=== PATIENT | male | born 1995 | race Caucasian/White ===

== ENCOUNTER 2021-06-13 16:10 | Emergency (ER) | payer MEDICAID, SELFPAY ==
[~2021-06-13] VITALS: Ht 177.8 cm; Wt 90.7 kg
[2021-06-13 16:27] VITALS: BP_SYST 127
--- NOTE | 2021-06-13 16:50 | NUR ---
Pt bib ALS for OD on RX meds with previous suicidal attempts.
[2021-06-13 17:20] LABS: BASOPHILS % (AUTO) 0.2 % (0.0-2.0); EOSINOPHILS % (AUTO) 0.4 % (0.0-4.0); HEMOGLOBIN 14.5 g/dL (14.0-18.0); LYMPHOCYTES # (AUTO) 1.7 K/uL (1.0-5.5); LYMPHOCYTES % (AUTO) 19.2 % (20.5-51.5); MEAN CORPUSCULAR HEMOGLOBIN 27 pg (27-31); MEAN CORPUSCULAR HGB CONC 33 % (32-36); MEAN CORPUSCULAR VOLUME 81 fL (79.0-98.0); MONOCYTES # (AUTO) 0.5 K/uL (0.0-1.0); MONOCYTES % (AUTO) 5.2 % (1.7-9.3); NEUTROPHILS # (AUTO) 6.8 K/uL (1.8-7.7); PLATELET COUNT (AUTO) 262 K/uL (130-430); RED CELL DISTRIBUTION WIDTH 18.6 % (9.0-15.0)
--- NOTE | 2021-06-13 17:20 | NUR ---
Poison control called. Advised to observed for drowsiness, QRS widened and abnormal ASA,Tylenol level.
[2021-06-13 17:33] LABS: ANION GAP 10 (5-15); CALCIUM 9.2 mg/dL (8.4-11.0); CHLORIDE 104 mmol/L (98-107); CREATININE 0.87 mg/dL (0.55-1.30); GLUCOSE 119 mg/dL (70-99); POTASSIUM 4.5 mmol/L (3.5-5.1); SODIUM SERUM 140 mmol/L (136-145); UREA NITROGEN, BLOOD 14 mg/dL (8-21)
[2021-06-13 17:34] LABS: GFR AFRICAN AMERICAN 135 mL/min (>90)
[2021-06-13 17:45] LABS: BILIRUBIN,URINE NEGATIVE (NEGATIVE); BLOOD, URINE NEGATIVE (NEGATIVE); CLARITY/URINE CLEAR (CLEAR); COLOR,URINE YELLOW (YELLOW); GLUCOSE,URINE NEGATIVE (NEGATIVE); KETONES,URINE NEGATIVE (NEGATIVE); LEUKOCYTE ESTERASE ,URINE NEGATIVE (NEGATIVE); NITRITE, URINE NEGATIVE (NEGATIVE); PH,URINE 5.5 (5.0-8.0); PROTEIN URINE NEGATIVE (NEGATIVE); UROBILINOGEN,URINE 0.2 (0.2-1.0)
[2021-06-13 17:47] LABS: ALANINE AMINOTRANSFERASE 117 U/L (12-78); ALBUMIN 3.8 g/dL (3.4-4.8); ASPARTATE AMINOTRANSFERASE 46 U/L (10-37); TOTAL BILIRUBIN 0.4 mg/dL (0.0-1.0)
--- NOTE | 2021-06-13 17:48 | NUR ---
EKG performed at BS by EMT. Physician given copy of EKG for review.
[2021-06-13 17:49] LABS: ACETAMINOPHEN < 1 ug/mL (1-30); ALCOHOL, BLOOD < 3 mg/dL (<10)
[2021-06-13 18:16] LABS: BARBITURATE, URINE NEGATIVE (NEG <=200); BENZODIAZEPINE, URINE NEGATIVE (NEG <=150); CANNABINOID, URINE NEGATIVE (NEG <=50); COCAINE, URINE NEGATIVE (NEG <=150); METHAMPHETAMINES SCREEN,URINE NEGATIVE (NEG <=500); OPIATE, URINE NEGATIVE (NEG <=100); PHENCYCLIDINE SCREEN,URINE NEGATIVE (NEG <=25); UR TRICYCLIC ANTIDEPRESSANTS NEGATIVE (NEG <=300); URINE AMPHETAMINE NEGATIVE (NEG <=500); URINE METHADONE NEGATIVE (NEG <=200); URINE OXYCODONE SCREEN NEGATIVE (NEG <=100); URINE PROPOXYPHENE SCREEN NEGATIVE (NEG <=300)
--- NOTE | 2021-06-13 19:30 | NUR ---
Assumed care of patient at change of shift. Introduced self to patient, positioned for comfort. Patient given meal tray. Patient resting quietly. No acute distress noted. Vital signs within normal range. Still expressing depression and SI thoughts (thinking about his ex and child-break up). Addendum: 06/13/21 at 2049 by [email or web address] Vitamin D2 (1 bottle emptied) 1.25mg cap amt ingested unknown Hydroxyzine HCL (3 bottles emptied) 50mg amt ingested unknown Gabapentin 300mg (1 bottle emptied) amt ingested unknown Sertraline 100mg (1 bottle emptied) amt ingested unknown
--- NOTE | 2021-06-13 21:14 | NUR ---
Keyonna Olivarez [phone] (mother)
--- NOTE | 2021-06-13 21:18 | NUR ---
Patient resting quietly. No acute distress noted. Vital signs within normal range. no bizarre or unusual behavior noted. Bed to low position sr up. clothing removed and placed on hospital gown.
--- NOTE | 2021-06-13 22:56 | NUR ---
Patient resting quietly. No acute distress noted. Vital signs within normal range. no bizarre or unusual behavior noted. Bed to low position sr up.
--- NOTE | 2021-06-13 23:07 | NUR ---
Received call from poison control who was given updated information. recommendation: supportative care until back to baseline (patient still tachycardia rate 116).
--- NOTE | 2021-06-14 01:47 | NUR ---
ient resting quietly. No acute distress noted. Vital signs within normal range. no bizarre or unusual behavior noted. Bed to low position sr up.
--- NOTE | 2021-06-14 03:30 | NUR ---
patient resting quietly. No acute distress noted. Vital signs within normal range. no bizarre or unusual behavior noted. Bed to low position sr up.
--- NOTE | 2021-06-14 06:00 | NUR ---
patient resting quietly. No acute distress noted. Vital signs within normal range. no bizarre or unusual behavior noted. Bed to low position sr up.
--- NOTE | 2021-06-14 07:30 | NUR ---
Pt in bed resting with no s/s of distress. Pt is A&Ox4. HR elevated at 108, all other vitals stable. Ambulatory with steady gait. Skin intact. Bed in lowest position. Urinal emptied.
--- NOTE | 2021-06-14 07:37 | NUR ---
PT ALERT AND ORIENTED COOPERATIVE AND APPROPRAITE. BREAKFAST AT BEDSIDE
--- NOTE | 2021-06-14 07:46 | NUR ---
Bed currently eating breakfast. Pt has no s/s of distress.
--- NOTE | 2021-06-14 08:21 | NUR ---
DR GUERRA AT BEDSIDE
--- NOTE | 2021-06-14 08:27 | NUR ---
DR GUERRA PLACING PATIENT ON 0093 DANGER TO SELF
--- NOTE | 2021-06-14 08:52 | NUR ---
Faxed 5150 hold, facesheet, and clinicals to the following LPS faciites: Javon Ash [facility] awaiting to hear back for 5150 placement.
--- NOTE | 2021-06-14 09:48 | NUR ---
REPORT GIVEN TO GERTRUDE DIA AT [facility]
--- NOTE | 2021-06-14 10:01 | NUR ---
TRANSFER INFO Javon conley spoke to Felicitas
--- NOTE | 2021-06-14 11:37 | NUR ---
Patient to be transferred to [facility]. Is being transferred due to higher level of care. Receiving facility has accepting physician MARI and available space. ER [facility]IZOL physician has signed transfer form. Patient or responsible constitution party has agreed to transfer and signed form. Patient belongings inventoried and will be sent with patient. Copy of nursing notes, lab reports, EKG, Physicians Orders and X-rays to be sent with patient. Report called to GERTRUDE at receiving facility. Receiving physician is MARI. [facility] ambulance service has been called for transfer.
[2021-06-14 11:41] VITALS: BP_SYST 133
== END 2021-06-14 11:37 ==
LOC: SED 16:10
DX: T45.0X2A Poisoning by antiallergic and antiemetic drugs, intentional self-harm, initial encounter (principal); T43.222A Poisoning by selective serotonin reuptake inhibitors, intentional self-harm, initial encounter; T42.6X2A Poisoning by other antiepileptic and sedative-hypnotic drugs, intentional self-harm, initial encounter; R45.851 Suicidal ideations; Z20.822 Contact with and (suspected) exposure to COVID-19; Y92.9 Unspecified place or not applicable
CPT/HCPCS: 36415; 80053; 80307; 81003; 82962; 85025; 87426; 93005; 99285; G0480; G0481; G0482